=== PATIENT | male | born 1985 | race Caucasian/White ===

== ENCOUNTER 2018-05-29 23:16 | Emergency (ER) | payer OTHER, MEDICAID ==
[2018-05-29] MEDS ORDERED: ACETAMINOPHEN 325 MG TABLET PO ONE (23:54)
--- NOTE | 2018-05-30 00:01 | RADIOLOGY REPORT (SQ) ---
EXAM DESCRIPTION: XR FOREARM 2 VIEWS COMPLETED DATE/TME: 05/29/2018 00:00 CLINICAL HISTORY: 32 years, Male, deformity COMPARISON: EXAM DESCRIPTION: CLINICAL HISTORY: deformity COMPARISON: None FINDINGS: 2 view(s) submitted. There is a fracture through the metallic plate of the mid ulna. 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 IMPRESSION: Failure of the plate over the ulna fracture. There is not osseous seen of the ulnar fracture. Alignment is near-anatomic. NUMBER OF VIEWS: TECHNIQUE: LIMITATIONS: None. FINDINGS: IMPRESSION: 2010 [facility] [employer]- All Rights Reserved
[2018-05-30] MEDS ORDERED: OXYCODONE-ACETAMINOPHEN 5-325 MG TABLET PO ONE (00:27)
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
[2018-05-30 01:27] VITALS: BP 128/63
== END 2018-05-30 01:38 ==
LOC: ER 23:16
DX: S52.201A Unspecified fracture of shaft of right ulna, initial encounter for closed fracture (principal); W06.XXXA Fall from bed, initial encounter; Y92.143 Cell of prison as the place of occurrence of the external cause; Z87.81 Personal history of (healed) traumatic fracture
CPT/HCPCS: 99284

== ENCOUNTER 2018-06-27 11:15 | Day surgery (SDC) | payer MEDICAID, OTHER ==
[~2018-06-27 11:15] MED LIST: BUPIVACAINE HCL 0.5 % INJ/PF 30 ML SDV ONE; CEFAZOLIN 2 GM/D5W RTU 2 GM/50 ML RTUPB IV PRN
[2018-06-27] MEDS ORDERED: ONDANSETRON HCL INJ/PF 4 MG/2 ML SDV ONE (11:51)
[2018-06-27] MEDS ORDERED: FENTANYL CITRATE INJ/PF 100 MCG/2 ML AMPUL ONE (11:51)
[2018-06-27] MEDS ORDERED: HYDROMORPHONE HCL INJ/PF 2 MG/ML AMPULE ONE (11:51)
[2018-06-27] MEDS ORDERED: KETOROLAC TROMETHAMINE 60 MG/2 ML SDV ONE (11:51)
[2018-06-27] MEDS ORDERED: DEXAMETHASONE SOD PHOSPHATE INJ 4 MG/1 ML VIAL ONE (11:51)
[2018-06-27] MEDS ORDERED: EPHEDRINE SULFATE INJ 50 MG/1 ML AMPULE ONE (11:51)
[2018-06-27] MEDS ORDERED: MIDAZOLAM 2 MG/2 ML INJ ONE (11:51)
[2018-06-27] MEDS ORDERED: PROPOFOL INJ 200 MG/20 ML VIAL IV ONE (11:52)
[2018-06-27] MEDS ORDERED: ACETAMINOPHEN 1,000 MG/100 ML RTUPB IV ONE (11:52)
[2018-06-27 11:56] LABS: APPEARANCE,URINE CLEAR; BILIRUBIN,URINE NEGATIVE (NEGATIVE); COLOR,URINE YELLOW; GLUCOSE, URINE NEGATIVE (NEGATIVE); KETONES,URINE NEGATIVE (NEGATIVE); LEUKOCYTE ESTERASE,URINE NEGATIVE (NEGATIVE); NITRITE,URINE NEGATIVE (NEGATIVE); PROTEIN,URINE NEGATIVE (NEGATIVE); URINE SPECIFIC GRAVITY 1.026; UROBILINOGEN,URINE NEGATIVE mg/dL (<2.0)
[2018-06-27] MEDS ORDERED: CEFAZOLIN 2 GM/D5W RTU 2 GM/50 ML RTUPB IV ONE (12:25)
[2018-06-27 12:33] LABS: HEMATOCRIT 40.1 % (37.9-51.0); HEMOGLOBIN 13.8 g/dL (13.5-17.0); MEAN CORPUSCULAR HEMOGLOBIN 32.6 pg (27.0-33.4); MEAN CORPUSCULAR HGB CONC 34.5 g/dL (32.0-36.0); MEAN CORPUSCULAR VOLUME 94 fl (80-97); PLATELET COUNT 385 10^3/uL (150-450); RED BLOOD COUNT 4.25 10^6/uL (4.35-5.55); RED CELL DISTRIBUTION WIDTH 13.4 % (11.5-14.0); WHITE BLOOD COUNT 10.3 10^3/uL (4.0-10.5)
--- NOTE | 2018-06-27 12:34 | RADIOLOGY REPORT (SQ) ---
EXAM DESCRIPTION: CHEST SINGLE VIEW COMPLETED DATE/TIME: 06/27/2018 12:07 pm REASON FOR STUDY: PREOP COMPARISON: 07/05/2015 EXAM PARAMETERS: NUMBER OF VIEWS: One view. TECHNIQUE: Single frontal radiographic view of the chest acquired. RADIATION DOSE: NA LIMITATIONS: None. FINDINGS: LUNGS AND PLEURA: No opacities, masses or pneumothorax. No pleural effusion. MEDIASTINUM AND HILAR STRUCTURES: No masses. Contour normal. HEART AND VASCULAR STRUCTURES: Heart normal in size. Normal vasculature. BONES: Old healed left clavicle and multiple healed lateral left rib fractures HARDWARE: None in the chest. OTHER: No other significant finding. IMPRESSION: NO ACUTE RADIOGRAPHIC FINDING IN THE CHEST. TECHNICAL DOCUMENTATION: JOB ID: [id number] [employer]- All Rights Reserved Reading location - IP/workstation name: [email or web address]
[2018-06-27 12:51] LABS: ANION GAP 11 (5-19); BLOOD UREA NITROGEN 14 mg/dL (7-20); CALCIUM 9.4 mg/dL (8.4-10.2); CARBON DIOXIDE 26 mmol/L (22-30); CHLORIDE 110 mmol/L (98-107); GLUCOSE 89 mg/dL (75-110); POTASSIUM 5.1 mmol/L (3.6-5.0); SODIUM 147.1 mmol/L (137-145)
[2018-06-27] MEDS ORDERED: MORPHINE SULFATE 10 MG/ML INJ IV PRN ×3 (13:10→14:54)
[2018-06-27] MEDS ORDERED: DIPHENHYDRAMINE HCL 50 MG/ML VIAL IV PRN (13:10)
[2018-06-27] MEDS ORDERED: MEPERIDINE HCL/PF INJ 25 MG/1 ML DISP.SYRIN IV PRN (13:10)
[2018-06-27] MEDS ORDERED: PROMETHAZINE HCL INJ 25 MG/1 ML VIAL IV PRN ×2 (13:10)
[2018-06-27] MEDS ORDERED: ONDANSETRON HCL INJ/PF 4 MG/2 ML SDV IV PRN (13:10)
[2018-06-27] MEDS ORDERED: FENTANYL CITRATE INJ/PF 100 MCG/2 ML AMPUL IV PRN ×3 (13:10)
[2018-06-27] MEDS ORDERED: OXYCODONE-ACETAMINOPHEN 5-325 MG TABLET PO PRN ×4 (13:10→14:54)
--- NOTE | 2018-06-27 14:46 | Discharge Summary ---
Discharge Summary (SDC) - Discharge Final Diagnosis: Right ulnar shaft nonunion Date of Surgery: 06/27/18 Discharge Date: 06/27/18 Forms: ASU Anesthesia D/C Instruction, Discharge POC-Surgical Service Treatment or Instructions: Schedule Follow Up w/ Dr. Jamey Alvarado @ [facility] for Surgery to be seen in 10-14 days or as scheduled [place]: [place]: [place]: Ice and elevate Keep splint clean/dry/intact. If your fingers become numb please unwrap the Supa wrap but leave the splint in place, if the sensation does not return within 30 minutes please return to the emergency department. May begin finger range of motion attempting to make full fist. Please use ibuprofen (Motrin or Advil) 600-800 mg every 8 hours as needed for pain or fever DO NOT TAKE w/ TORADOL may use once TORADOL complete. You may also use acetaminophen (Tylenol) 1000 mg every 4-6 hours as needed for pain or fever. Please be aware that many medications contain acetaminophen, do not exceed a total of 1000 mg of acetaminophen every 6 hours. If ibuprofen and acetaminophen are not sufficient for your pain you may take the Percocet/[place]. Please be aware that the Percocet/[place] does contain Tylenol. Stool softener of choice when on pain medication. Prescriptions: Oxycodone HCl/Acetaminophen [Percocet 5-325 mg Tablet] 1 tab PO Q6 PRN #25 tab PRN Reason: Referrals: JAMEY ALVARADO DO [ACTIVE STAFF] - Discharge Diet: As Tolerated Discharge Activity: No Lifting Over 10 Pounds, No Lifting/Push/Pulling Report the Following to Your Physician Immediately: Fever over 101 Degrees, Unusual Bleeding, Redness, Swelling, Warmth, Increased Soreness
[2018-06-27] MEDS: FENTANYL CITRATE INJ/PF 100 MCG/2 ML AMPUL ONE ×2 (14:54→14:59)
[2018-06-27] MEDS ORDERED: SUCCINYLCHOLINE CHLORIDE INJ 200 MG/10 ML VIAL ONE (14:54)
--- NOTE | 2018-06-27 15:02 | Operative Report ---
Operative Report DATE OF SURGERY: 06/27/18 PREOPERATIVE DIAGNOSIS: Right ulnar shaft nonunion POSTOPERATIVE DIAGNOSIS: Same OPERATION: Removal of deep hardware right forearm with takedown nonunion revision open reduction internal fixation right ulnar shaft SURGEON: LUISITO ALVARADO ANESTHESIA: GA COMPLICATIONS: None ESTIMATED BLOOD LOSS: Minimal PROCEDURE: Indication for above procedure: 32-year-old male who sustained a ulnar shaft fracture and subsequently underwent open reduction internal fixation elsewhere. According to the patient he had persistent pain in the arm and then he fell off his bunk onto the forearm resulting in a refracture of the ulna and/or fracture of the hardware. He then was seen at my office where we discussed findings and treatment options including operative versus nonoperative intervention. Risks and benefits of operative treatment were explained to the patient who verbalized understanding consented for the procedure. Procedure In Detail: Patient was seen and evaluated in the preoperative holding area. The RIGHT upper extremity was initialized and marked. Patient received 2g of Ancef IV for bacterial prophylaxis. Patient was taken back to the operative room where transferred to the operative table and placed under general anesthesia. Once they were adequately anesthetized a nonsterile tourniquet was placed on the upper extremity. A surgical team debriefing was performed ensuring all instrumentation was available, the surgical procedure was discussed with possible concerns reviewed. The upper extremity was prepped with chlorhexidine and alcohol and draped in a sterile fashion. A timeout was done identifying correct patient, procedure and extremity everyone in attendance agree with this and verbalized no concerns. The extremity was exsanguinated the tourniquet was inflated to 250 mmHg. Previous skin incision was utilized. Blunt dissection performed. Branch of the dorsal ulnar sensory nerve was identified and retracted. Any peripheral veins were coagulated with cautery. The interval between the FCU/ECU was then utilized to expose the underlying hardware. The hardware was easily removed. Cultures were obtained and sent to microbiology. The nonunion site was then debrided using rongeur and curettes. Drill was placed to the medullary canal proximally and distally. The wound was debrided until punctate bleeding was encountered. The proximal and distal aspect was then peddled with a osteotome. A 14 hole Elton plate was then placed which allowed 2 additional points of fixation proximally and distally. It was first secured distally with bicortical fixation x2. Once the distal aspect was fixated the plate was advanced proximally to compress at the fracture site. Initial fixation was obtained to dynamic hole. Once within the dynamic hole further compression was performed with a second compression screw. Additional fixation was obtained with bicortical fixation and unicortical locking screws proximally. Additional bicortical fixation was obtained distally along with unicortical locking screws. At the completion had good compression of the fracture. C-arm fluoroscopy was obtained confirming appropriate alignment on AP and lateral projection. The wound was then copiously irrigated with normal saline. 2.5 cc of Vitoss synthetic bone graft was impacted around the nonunion site. The interval between the ECU/FCU was closed with interrupted 2-0 Vicryl suture. Subcutaneous tissues closed with interrupted 4-0 Monocryl suture. Skin was closed with hank. 30 cc of 0.5% Marcaine with epinephrine was injected for postoperative pain control. Patient was placed in a sugar tong splint with the forearm in neutral position. Sponge counts, instrument counts, needle counts were correct. Patient was then awoken from anesthesia. Transferred from the operating room table to the operating room stretcher. There was no intraoperative complications patient tolerated procedure well stable to PACU. Postoperative plan: Patient will follow-up at 2 weeks postoperatively. Will obtain forearm radiographs will be performed at that time.
--- NOTE | 2018-06-27 15:11 | RADIOLOGY REPORT (SQ) ---
EXAM DESCRIPTION: NO CHG FLUORO COMPLETE DATE/TIME: 06/27/2018 3:00 pm REASON FOR STUDY: ORIF RT FOREARM ASST WITH FLUORO IN OR S52.231K DISPL OBLIQUE FX SHAFT OF R ULNA, 7THK FINDINGS: Please see combined report for performance of procedure and radiologic supervision and int erpretation. IMPRESSION: Please see combined report for performance of procedure and radiologic supervision and i nterpretation. Reading location - IP/workstation name: [email or web address]
--- NOTE | 2018-06-27 15:11 | RADIOLOGY REPORT (SQ) ---
EXAM DESCRIPTION: FOREARM RIGHT COMPLETED DATE/TIME: 06/27/2018 3:00 pm REASON FOR STUDY: ORIF RT FOREARM ASST WITH FLUORO IN OR S52.231K DISPL OBLIQUE FX SHAFT OF R ULNA, 7THK COMPARISON: 05/29/2018 FLUOROSCOPY TIME: 0.4 minutes 5 images saved to PACS. TECHNIQUE: Intra-operative images acquired during surgical procedure to evaluate progress. NUMBER OF IMAGES: 5 images LIMITATIONS: None. FINDINGS: Fluoroscopic images demonstrate orthopedic hardware at the level of the mid ulna. Bone fr agment is again identified at the level of the fracture site. Please refer to the surgeon's operativ e report for additional information IMPRESSION: IMAGE(S) OBTAINED DURING PROCEDURE. COMMENT: Quality ID [id number]: Final reports for procedures using fluoroscopy that document radiation exp osure indices, or exposure time and number of fluorographic images (if radiation exposure indices are not available) Please consult full operative report of the attending physician for description of the procedure. TECHNICAL DOCUMENTATION: JOB ID: [id number] [employer]- All Rights Reserved Reading location - IP/workstation name: [email or web address]
[2018-06-27] MEDS ORDERED: OXYCODONE-ACETAMINOPHEN 5-325 MG TABLET ONE (15:46)
[2018-06-27 17:03] VITALS: BP 139/94
--- NOTE | 2018-06-29 10:46 | EKG REPORT ---
SEVERITY:- NORMAL ECG - SINUS RHYTHM : Confirmed by: Matt Bashir 29-Jun-2018 10:44:35
== END 2018-06-27 16:57 | disposition home or self-care (01) ==
LOC: OROUT 11:15
PROVIDERS: ATTEND Orthopaedic Surgery
DX: S52.23 Oblique fracture of shaft of ulna (principal); V19.9XXD Pedal cyclist (driver) (passenger) injured in unspecified traffic accident, subsequent encounter; Z87.891 Personal history of nicotine dependence
CPT/HCPCS: 36415; 87070; 87205; 87075; 85027; 80048; 81001; 71045; 73090; 93005; 93010; 25405; C1713 ×7; J2250; J3490; J1100; J3010; J0330; J2405; J2704; J0690; J0131; 01830; J1170; J1885

== ENCOUNTER 2020-02-25 18:08 | Emergency (ER) | payer SELFPAY ==
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
--- NOTE | 2020-02-25 18:53 | RADIOLOGY REPORT (SQ) ---
EXAM DESCRIPTION: KNEE LEFT 4 VIEW IMAGES COMPLETED DATE/TIME: 02/25/2020 6:29 pm REASON FOR STUDY: chainsaw injury COMPARISON: None. NUMBER OF VIEWS: Four views. TECHNIQUE: AP, lateral, and both oblique radiographic images acquired of the left knee. LIMITATIONS: None. FINDINGS: MINERALIZATION: Normal. BONES: There is a triangular-shaped defect in the anterior cortex of the patella. JOINT: No effusion. SOFT TISSUES: There appears to be anterior soft tissue defect just below the level of the patella. OTHER: There are rods in the distal femur and the proximal tibia. IMPRESSION: Triangular defect in the anterior cortex of the patella. TECHNICAL DOCUMENTATION: JOB ID: [id number] [employer]- All Rights Reserved Reading location - IP/workstation name: [email or web address]
[2020-02-25] MEDS ORDERED: ONDANSETRON HCL INJ/PF 4 MG/2 ML SDV IV ONE (19:32)
[2020-02-25] MEDS ORDERED: MORPHINE SULFATE 10 MG/ML INJ IV ONE (19:32)
[2020-02-25] MEDS ORDERED: LIDOCAINE 1%/EPINEPHRINE INJ 20 ML VIAL INJ ONE (20:16)
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
[2020-02-25] MEDS ORDERED: FENTANYL CITRATE INJ/PF 100 MCG/2 ML AMPUL IV ONE (20:38)
[2020-02-25] MEDS ORDERED: CEFAZOLIN 1 GM/D5W RTU 1 GM/50 ML RTUPB IV ONE (21:26)
[2020-02-25] MEDS ORDERED: HYDROCODONE/ACETAMINOPHEN 5-325 MG (6 TAB/ER DISP) PO PRN (21:55)
[2020-02-25 22:27] VITALS: BP 126/80
== END 2020-02-25 22:25 | disposition home or self-care (01) ==
LOC: ER 18:08
PROC: 0HQLXZZ Repair Left Lower Leg Skin, External Approach (ICD-10-PCS; principal; 2020-02-25)
DX: S81.812A Laceration without foreign body, left lower leg, initial encounter (principal); M25.562 Pain in left knee; W29.3XXA Contact with powered garden and outdoor hand tools and machinery, initial encounter; F17.200 Nicotine dependence, unspecified, uncomplicated
CPT/HCPCS: 99283; 96375; 96365; 73564; 12002; J0690; J3010; J3490; J2270; J2405